=== PATIENT | female | born 1945 | race Caucasian/White ===

== ENCOUNTER 2016-05-10 16:05 | Inpatient (IN) | payer MEDICARE, MEDICAID ==
--- NOTE | 2016-05-10 16:26 | ED Physician Chart ---
Chief Complaint/HPI - Patient Information Date Seen:: 05/10/16 Time Seen:: 16:21 Chief Complaint:: depression History of Present Illness:: [place] is [place] for [place]. she admits she has been very depressed but no si and no hi. she comes from a [facility] and has reportedly been refusing all care there. pt denies any pains or recent illness. no fever. no gi upset. pt has chronic eye irritation "from the smog" and chronic sensative skin... Allergies:: Allergies Allergy/AdvReac Type Severity Reaction Status Date / Time erythromycin base Allergy Verified 05/10/16 16:19 ibuprofen Allergy Verified 05/10/16 16:19 NSAIDS (Non-Steroidal Allergy Verified 05/10/16 16:19 Anti-Inflamma Sulfa (Sulfonamide Allergy Verified 05/10/16 16:20 Antibiotics) Historian:: Patient Review of Systems - Review of Systems General/Constitutional: No fever, No chills, No weight loss, No weakness, No diaphoresis, No edema, No loss of appetite Skin: No skin lesions, Rash, No bruising Head: No headache, No light-headedness Eyes: No loss of vision, No pain, No diplopia ENT: No earache, No nasal drainage, No sore throat, No tinnitus Neck: No neck pain, No swelling, No thyromegaly, No stiffness, No mass noted Cardio Vascular: No chest pain, No palpitations, No PND, No orthopnea, No edema Pulmonary: No SOB, No cough, No sputum, No wheezing GI: No nausea, No vomiting, No diarrhea, No pain, No melena, No hematochezia, No constipation, No hematemesis G/U: No dysuria, No frequency, No hematuria Musculoskeletal: No bone or joint pain, No back pain, No muscle pain Endocrine: No polyuria, No polydipsia Psychiatric: No prior psych history, No depression, No anxiety, No suicidal ideation Hematopoietic: No bruising, No lymphadenopathy Allergic/Immuno: No urticaria, No angioedema Neurological: No syncope, No focal symptoms, No weakness, No paresthesia, No headache, No seizure, No dizziness, No confusion, No vertigo Past Medical History - Past Medical History Past Medical History: HTN, Other (diverticulitis, ambulatory difficulty) Social History: Care Facility Medication: Reviewed Family Medical History - Family Member Mother History Unknown: Yes Ethnicity: Non- Living Status: Unknown Hx Family Cancer: No Hx Family Coronary Artery Disease: Yes Hx Family Congestive Heart Failure: No Hx Family Hypertension: Yes Hx Family Stroke: Yes Hx Family Diabetes: Yes Hx Family Seizures: No Hx Family Dementia: Yes Hx Family AIDS: No Hx Family HIV: No Hx Family COPD: No Hx Family Hepatitis: No Hx Family Psychiatric Problems: No Hx Family Tuberculosis: No Physical Exam - Physical Examination General/Constitutional: Awake, Well-developed, well-nourished, Alert, No distress, GCS 15, Non-toxic appearing, Ambulatory Other Gen/Cons comments:: mod obese. alert and talking but oppositional and argumentative at times. Head: Atraumatic Eyes: Lids, conjuctiva normal, PERRL, EOMI Skin: Nl inspection, No skin lesions, No ecchymosis, Well hydrated, No lymphadenopathy Other Skin comments:: flaking skin noted on face. eyes mildly injected ...slt irritation noted. ENMT: External ears, nose nl, Nasal exam nl, Lips, teeth, gums nl Neck: Nontender, Full ROM w/o pain, No JVD, No nuchal rigidity, No bruit, No mass, No stridor Respiratory: Nl effort/Exclusion, Clear to Auscultation, No Wheeze/Rhonchi/Rales Cardio Vascular: RRR, No murmur, gallop, rubs, NL S1 S2 GI: No tenderness/rebounding/guarding, No organomegaly, No hernia, Normal BS's, Nondistended, No mass/bruits, No McBurney tenderness : No CVA tenderness Extremities: No tenderness or effusion, Full ROM, normal strength in all extremities, No edema, Normal digits & nails Neuro/Psych: Alert/oriented, DTR's symmetric, Normal sensory exam, Normal motor strength, Judgement/insight normal, Mood normal, Normal gait, No focal deficits Misc: normal gait, Normal back, No paraspinal tenderness Labs/Radiology/EKG Results - Lab Results Results: Laboratory Tests 05/10/16 05/10/16 16:35 16:35 WBC 6.6 RBC 5.73 H Hgb 15.3 D Hct 46.6 H D MCV 81.3 MCH 26.7 L MCHC Differential 32.9 RDW 14.3 Plt Count 285 D MPV 8.6 Neutrophils % 59.4 Lymphocytes % 30.5 Monocytes % 7.6 Eosinophils % 2.2 Basophils % 0.3 Sodium 139 Potassium 3.8 Chloride 108 H Carbon Dioxide 23.9 Anion Gap 10.9 BUN 21 Creatinine 0.7 Est GFR ( Amer) > 60.0 Est GFR (Non-Af Amer) > 60.0 BUN/Creatinine Ratio 30.0 Glucose 117 H Calcium 10.4 H Total Bilirubin 0.6 AST 13 ALT 5 L Alkaline Phosphatase 73 Total Protein 7.3 Albumin 4.1 Globulin 3.2 Albumin/Globulin Ratio 1.3 Triglycerides 71 Cholesterol 144 LDL Cholesterol Direct 80 HDL Cholesterol 52 - EKG Interpretations EKG Time:: 16:35 Rhythm: nsr [place]: 255 Rate: 105 Comments:: left ant fascicular block, otw stable. ok st/t waves. nad ED Septic Shock - . Is Septic Shock (SBP<90, OR Lactate>4 mmol\\L) present?: No Reassessment (Disposition) - Reassessment Reassessment Condition:: Unchanged - Diagnosis Diagnosis:: depression difficult behavior at [place] - Patient Disposition Admitted to:: [facility] Condition at Disposition:: Unchanged
[2016-05-10 16:48] LABS: % BASOPHILS 0.3 % (0.0-2.0); % EOSINOPHILS 2.2 % (0.0-5.0); % LYMPHOCYTES 30.5 % (20.0-50.0); % MONOCYTES 7.6 % (2.0-10.0); % NEUTROPHILS 59.4 % (40.0-80.0); MEAN CELL VOLUME 81.3 fl (81-100); MEAN CORPUSCULAR HEMOGLOBIN 26.7 pg (27.0-31.0); MEAN CORPUSCULAR HGB CONC 32.9 pg (28.0-36.0); MEAN PLATELET VOLUME 8.6 fl; RED BLOOD COUNT 5.73 Mil/cmm (3.80-5.20); RED CELL DISTRIBUTION WIDTH 14.3 % (11.5-20.0); WHITE BLOOD COUNT 6.6 Th/cmm (4.8-10.8)
[2016-05-10 16:50] LABS: HEMATOCRIT 46.6 % (35.0-45.0); HEMOGLOBIN 15.3 gm/dL (11.7-16.1); PLATELET COUNT 285 Th/cmm (150-400)
[2016-05-10 17:06] LABS: ALB/GLOB RATIO 1.3 (1.0-1.8); ALKALINE PHOSPHATASE 73 U/L (34-104); ANION GAP 10.9 (7.0-16.0); BILIRUBIN,TOTAL 0.6 mg/dL (0.3-1.0); BUN - UREA NITROGEN 21 mg/dL (7-25); CALCIUM SERUM 10.4 mg/dL (8.6-10.3); CARBON DIOXIDE 23.9 mEq/L (21.0-31.0); CHLORIDE 108 mEq/L (98-107); CHOLESTEROL 144 mg/dL (<200); CREATININE - SERUM 0.7 mg/dL (0.6-1.2); GLUCOSE 117 mg/dL (70-105); POTASSIUM SERUM 3.8 mEq/L (3.5-5.1); SGOT 13 U/L (13-39); SGPT/ALT 5 U/L (7-52); SODIUM SERUM 139 mEq/L (136-145); TRIGLYCERIDES 71 mg/dL (<150)
[2016-05-10 20:43] VITALS: BP 135/85
[2016-05-10] MEDS ORDERED: Magnesium Hydroxide (MOM) 30 mL UDC PO PRN (22:46)
[2016-05-11] MEDS ORDERED: Non-Formulary Item 1 EA (Cranberry Fruit Extract [Cranberry] 425 MG) PO SCH (09:00)
--- NOTE | 2016-05-11 19:38 | History & Physical ---
HISTORY OF PRESENT ILLNESS: The patient is a 70-year-old with long history of hypertension, hypothyroidism, degenerative joint disease, psychosis, admitted to Geropsych Department at [facility] for more advanced treatment. The patient has been very depressed, refusing medication and diet. She denies any chest pain, any shortness of breath, nausea, vomiting, fever, or chills. PAST MEDICAL HISTORY: Significant for hypertension, hypothyroidism, diverticulosis, degenerative joint disease, psychosis, and depression. PAST SURGICAL HISTORY: Perforated diverticulitis, status post exploratory laparotomy, and colostomy placement. ALLERGIES: None. MEDICATIONS: Follow admission reconciliation. SOCIAL HISTORY: No smoking, no alcohol, and no drugs. FAMILY HISTORY: Noncontributory. REVIEW OF SYSTEMS: RENAL SYSTEM: No history of chronic renal disorder. CARDIOVASCULAR SYSTEM: No coronary artery disease. ENDOCRINE SYSTEM: She has history of hypothyroidism. GASTROINTESTINAL SYSTEM: No upper or lower gastrointestinal bleed. NEUROLOGICAL: She has history of psychosis and depression. MUSCULOSKELETAL SYSTEM: She has degenerative joint disease. PHYSICAL EXAMINATION: GENERAL: She is awake, alert, and oriented. VITAL SIGNS: Temperature is 98, heart rate is 103, and blood pressure 136/84. HEENT: Normocephalic. Pupils are reacting to light and accommodation. Sclerae clear. NECK: Supple. Negative for lymphadenopathy, JVD, or bruit. CHEST: Bilaterally normal. No rhonchi or wheezing. HEART: S1, S2 normal. No murmur or gallop. ABDOMEN: Soft. Bowel sounds positive. EXTREMITIES: No edema. NEUROLOGIC: She is awake, alert, and oriented. No focal motor or sensory deficits. Cranial nerves 2-12 is intact. LABORATORY DATA: White blood 6.6, hemoglobin 15.3, hematocrit 46.6, and platelets 286,000. Sodium 139, potassium 3.8, BUN 21, and creatinine 0.7. TSH 7.4. ASSESSMENT: 1. Hypertension. 2. Hypothyroidism. 3. Degenerative joint disease. 4. Psychosis. 5. Depression. PLAN: The patient was admitted to the hospital under Dr. Robledo's service. MEDICAL PROBLEMS TO BE ADDRESSED DURING HOSPITALIZATION: Psychosis, depression, and hypothyroidism. The patient is cleared for treatment. We will resume her Synthroid 50 mcg a day. JOB# [id number]
[2016-05-12] MEDS: Levothyroxine 0.05 Mg Tab PO SCH (06:38)
[2016-05-12 11:12] LABS: HEP B CORE IGM Negative (Negative); HEP C ANTIBODY <0.1 s/co ratio (0.0-0.9)
--- NOTE | 2016-05-12 15:00 | Psychosocial Evaluation ---
AGE: 70. SEX: Female. PHYSICIAN: Dr. Robledo. CHIEF COMPLAINT: Agitation and paranoia. HISTORY OF PRESENT ILLNESS: The patient is a 70-year-old female with history of schizoaffective disorder. The patient has been retired and living in [facility]. Lately, the patient had been agitated and aggressive and had been in angry mood. The patient also has not been able to follow staff's directions and has been more agitated. The patient also has been having mood swings. Staff at the prison has not been able to monitor her and has not been able to control her poor impulse and was worried that the patient might hurt somebody or herself and the patient was transferred to the hospital. The patient is extremely angry and when I tried to talk to the patient, the patient responded by, "leave me alone." She refused to answer questions and she was getting agitated ____ answer questions. The patient also is disheveled and has poor hygiene. PAST PSYCHIATRIC HISTORY: The patient was in [facility] several months ago for treatment of schizoaffective disorder. PAST MEDICAL HISTORY: No acute. SOCIAL HISTORY: No known alcohol or street drug use. ALLERGIES: No known allergies. MENTAL STATUS EXAMINATION: The patient appears her stated age. Anxious. Irritable mood. Disheveled. Thought processes are ____ of speech. The patient did not answer question regarding hallucinations or delusions, but seems to be actively responding to stimuli. The patient is alert, but unable to assess her orientation or memory at this time because of her agitation and irritability. Poor insight. Poor judgment. ASSESSMENT: PRIMARY DIAGNOSIS: Schizoaffective disorder, bipolar type, with psychosis. TREATMENT PLAN: Continue to monitor the patient's behavior and condition closely. Also, we will start the patient on Seroquel. We will work on her poor impulse control. ESTIMATED LENGTH OF STAY: 7-10 days. PATIENT'S STRENGTHS AND WEAKNESSES: The patient's strength is not clear at this time. Weakness is ineffective coping. AFTER-DISCHARGE PLAN: Outpatient treatment and followup, will continue as an outpatient. CRITERIA FOR DISCHARGE: The patient will not be psychotic and stabilize with psychotropic medications and establish outpatient treatment plans. [facility]# [id number]
--- NOTE | 2016-05-12 22:04 | Psychosocial Evaluation ---
JUSTIFICATION FOR HOSPITALIZATION: The patient currently in the hospital, not eating, severely depressed, melancholic, refusing all care at a long term. CHIEF COMPLAINT: "I'm not feeling good." HISTORY OF PRESENT ILLNESS: This is a 70-year-old female, currently in the Geropsych Unit, severely depressed, melancholic, sullen, refusing interview, refusing medications, refusing care, refusing to eat at times. The patient is anhedonic, appearing hopeless and despairing. PAST PSYCHIATRIC HISTORY: Depression. SOCIAL HISTORY: Currently residing in a long term. There is a daughter __but seems to not be involved___. The patient is refusing to answer other questions. MEDICATIONS: Reviewed. MEDICAL HISTORY: Reviewed, please see full H and P. MENTAL STATUS EXAMINATION: Stated age. Little eye contact. Speech, not saying much, refusing interview, guarded. Mood "bad." Affect depressed. Thought processes were difficult to fully assess. Limited interview. Thought content, difficult to fully assess. Refusing to answer questions. No overt suicidal gestures. No overt psychotic symptoms. PROVISIONAL DIAGNOSES: Major depression, recurrent, severe. It is unclear if there is a psychotic component here. We will need to increase collateral and further assess. Under medical, please see full H and P. ESTIMATED LENGTH OF STAY: 5-10 days. ASSESSMENT: The patient is requiring inpatient hospitalization, severely depressed, refusing care, not eating much, refusing her medications, refusing interview. PLAN: We will continue to monitor. We will initiate low dose of an antidepressant. TREATMENT PLAN: Includes group as well as milieu therapy. CONDITIONS FOR DISCHARGE: Improved mood, improved affect, cessation of any SI or HI. Better p.o. intake. Better coping. JOB# [id number] TRACIE
[2016-05-13] MEDS: Levothyroxine 0.05 Mg Tab PO SCH (06:36)
[2016-05-14] MEDS: Levothyroxine 0.05 Mg Tab PO SCH (06:42)
--- NOTE | 2016-05-14 07:19 | Progress Notes ---
I am covering for Dr. Gamino. SUBJECTIVE: Overnight nursing staff reported that the patient has been very withdrawn, refusing care, at times paranoid. Today on [id number] evaluation, she is in her room, refusing to be interviewed easily, dismissive ____ medical doctor and the psychiatrist. MENTAL STATUS EXAMINATION: Withdrawn, irritable, refusing interview, poor insight, judgment and impulse control. ASSESSMENT AND PLAN: The patient is a 70-year-old female who continues to present very easily irritable and easily agitated, unable to engage in conversation. She presents very withdrawn and depressed. We will continue targeting her depression with the primary current psychiatric treatment plan and goals and current medications, which include Lexapro 5 mg and quetiapine 25 mg p.o. b.i.d. We will continue titrating as tolerated. [facility]# [id number]
[2016-05-14] MEDS: Escitalopram Oxalate 5 mg Tab PO SCH (09:55)
--- NOTE | 2016-05-14 22:43 | Progress Notes ---
SUBJECTIVE: The patient is seen, chart reviewed. Discussed with staff. The patient is currently in the hospital, irritable, refusing care. Concerns for weight loss, refusing medications, incontinent, telling staff to not bother her, although she remained unchanged at SNF and__ also developing rash there. The patient telling me to "go away, refusing interview, withdrawn." APathetic ASSESSMENT: The patient is _resistive___ towards medical care, withdrawn, irritable, refusing interview, concerns for safety. She has been intermittently medication compliant. PLAN: Continue to monitor. Continue to work on the patient's compliance issues. The patient continues to refuse care. I may need to follow a Ritk petition. JOB# [id number] TRACIE
[2016-05-15] MEDS: Levothyroxine 0.05 Mg Tab PO SCH (09:45)
[2016-05-15] MEDS: Escitalopram Oxalate 5 mg Tab PO SCH (09:45)
--- NOTE | 2016-05-16 02:58 | Progress Notes ---
SUBJECTIVE: The patient was seen, chart reviewed, and discussed with staff. The patient is more amenable to interview today. She is somewhat friendly here. She states that she is severely depressed and hopeless, very unhappy with her living environment. On a positive note, she is more honest with me. She tells me that she is not eating because she does not like the food here. She states she is not happy with the care over the other facility that is why she was refusing care. She wants to go to some alternative facility if possible. She knows she is eating a little bit better and will try to eat more. She does _attest to___ hopeless thoughts, despair, pessimistic thought, currently restraints from her daughter who we really have not been in touch with whatsoever. ASSESSMENT: The patient with poor p.o. intake. She is consistently and adamantly refusing medications, stating that she feels the medications do not help her. She also has very poor p.o. intake and is intermittently refusing meal, which is concerning, also irritable, verbally aggressive and abusive towards staff, although she is pretty friendly with me today. Surprisingly, given that she has essentially refused interview in the past ___today she does not tell me to___ "go away". We will continue to monitor. The patient is not safe for discharge, currently gravely disabled. She has nowhere to go, and we are trying to help her with placement, but in the meantime, we will stabilize her further and encourage med compliance and better p.o. intake. [facility]# [id number] TRACIE
[2016-05-16] MEDS: Levothyroxine 0.05 Mg Tab PO SCH (06:50)
[2016-05-16] MEDS: Escitalopram Oxalate 5 mg Tab PO SCH (08:54)
--- NOTE | 2016-05-17 02:42 | Progress Notes ---
SUBJECTIVE: The patient was seen, chart reviewed, and discussed with staff. The patient is still refusing food at times, angry, and unhappy with the food. She states she does not like the food. She is also refusing medications at times, verbally aggressive towards staff at times. She is fairly linear on exam, stating she is very depressed past of SI. But no active SI. "I don't know if I can do anything." The patient noted to be sleeping well, isolative, and withdrawn. She is amenable to placement. ASSESSMENT: The patient is hopeless, despairing, refusing treatment at times, and poor p.o. intake. PLAN: Encouraged better p.o. intake. Continue to work on the patient's placement, insight, and increase socialization. JOB# [id number] TRACIE
[2016-05-17] MEDS: Levothyroxine 0.05 Mg Tab PO SCH (06:32)
[2016-05-17] MEDS: Escitalopram Oxalate 5 mg Tab PO SCH ×2 (08:47→08:49)
--- NOTE | 2016-05-18 | Progress Notes ---
SUBJECTIVE: The patient is seen, chart is reviewed. Discussed with staff. The patient is not eating very well, refusing care. She get on a positive note____ taking medications today. The staff noting she remains verbally abusive, is afraid of staff essentially, denying that she feels the food is poisoned, but she is not eating very well, which is of concern, severely depressed, withdrawn, melancholic, passive SI. ASSESSMENT: The patient remains symptomatic, still thoughts of dying, thoughts of , passive suicidal thoughts, very withdrawn, poor p.o. intake, refusing care. PLAN: Continue to monitor. Continue to encourage p.o. intake and medication compliance. Given the severity of the patient's behavior, she is not safe for discharge. JOB# [id number] TRACIE
[2016-05-18] MEDS: Levothyroxine 0.05 Mg Tab PO SCH (06:34)
[2016-05-18] MEDS: Escitalopram Oxalate 5 mg Tab PO SCH ×2 (08:17→08:21)
[2016-05-19] MEDS: Levothyroxine 0.05 Mg Tab PO SCH (06:40)
--- NOTE | 2016-05-19 07:22 | Progress Notes ---
SUBJECTIVE: The patient was seen, chart reviewed, and discussed with staff. The patient remains depressed, still symptomatic, still refusing medications intermittently, not eating much today. Staff concerned. She is drinking the water, however. The patient is refusing to speak with me. She states she feels, "bad." She continues to have passive suicidal ideations, hopeless, despairing, withdrawn, isolative, . ASSESSMENT: The patient remains symptomatic, depressed, withdrawn, and poor p.o. intake. PLAN: We will continue to monitor, encourage better p.o. intake, and encourage med compliance. JOB# [id number] TRACIE
[2016-05-19] MEDS: Escitalopram Oxalate 5 mg Tab PO SCH (08:02)
--- NOTE | 2016-05-19 23:31 | Progress Notes ---
SUBJECTIVE: The patient is seen, chart reviewed, discussed with staff. The patient remains depressed, not talking to me, not eating, _and___staff concerned , isolative, withdrawn, staring blankly, continues to have passive suicidal ideations wishing she were , but no active plans. ASSESSMENT: The patient remains symptomatic, deeply depressed, withdrawn, isolative, poor p.o. intake. PLAN: Continue to monitor. We will continue to encourage better med compliance. The patient remains hopeless and despairing. JOB# [id number] TRACIE
[2016-05-20] MEDS: Levothyroxine 0.05 Mg Tab PO SCH (06:46)
[2016-05-20] MEDS: Escitalopram Oxalate 5 mg Tab PO SCH (08:31)
--- NOTE | 2016-05-21 02:18 | Progress Notes ---
SUBJECTIVE: The patient was seen, chart reviewed, and discussed with staff. The patient remains depressed, poor p.o. intake, agitated at times, yells at times, not eating much, very depressed, and withdrawn. The patient has been living in [place]. She had been poorly compliant, not following direction. Staff was concerned. The patient is not answering any questions this morning. She remains depressed, withdrawn, still no eating at times, refusing medications at times as well. ASSESSMENT: The patient remains depressed, withdrawn, symptomatic, poor p.o. intake, sullen on exam. PLAN: The patient may need a Riese petition. The patient does continue to refuse care and/or concerns about further decline. JOB# [id number]
[2016-05-21] MEDS: Levothyroxine 0.05 Mg Tab PO SCH (06:50)
[2016-05-21] MEDS: Escitalopram Oxalate 5 mg Tab PO SCH (16:17)
--- NOTE | 2016-05-21 23:44 | Progress Notes ---
SUBJECTIVE: The patient is seen, chart reviewed, discussed with staff. The patient remains depressed, withdrawn, not answering any questions this morning, just staring at me blankly. When I asked her why she is not talking to me, she states, "I do not want to say." Remains depressed, poor p.o. intake for medication compliance, not really responding to most staff members, resistive to ADLs. ASSESSMENT: The patient remains depressed, withdrawn, symptomatic, poor p.o. intake, , passive suicidal ideations. PLAN: Continued concerns for safety given that she is not eating much, not taking any medications, we will continue to monitor due to concerns about further decline. JOB# [id number] TRACIE
[2016-05-22] MEDS: Levothyroxine 0.05 Mg Tab PO SCH (06:35)
[2016-05-22] MEDS: Escitalopram Oxalate 5 mg Tab PO SCH (09:47)
--- NOTE | 2016-05-23 02:33 | Progress Notes ---
DATE: 05/22/2016 SUBJECTIVE: The patient seen, chart reviewed, and discussed with staff. The patient remains depressed, withdrawn, still refusing to eat, states that she does not like the food, that she finds the food tasteless, that the food makes her sick. Denies that she feels the food is poisoned. ___NO__ psychotic symptoms __noted but___ very sullen and withdrawn, continues to have passed with SI. Resistive to care. ASSESSMENT: The patient is depressed, withdrawn, poor p.o. intake, refusing medications, states that she has been on many other depressants as well as many medications for adjunctive and "none of them work." PLAN: Continue to monitor. I will be consulting with a colleague to get some redirection in regards to have the best care for this patient. JOB# [id number] MTDMorales
[2016-05-23] MEDS: Levothyroxine 0.05 Mg Tab PO SCH (06:42)
--- NOTE | 2016-05-24 04:03 | Progress Notes ---
DATE: 05/23/2016 SUBJECTIVE: The patient was seen, chart reviewed, discussed with staff. The patient is still symptomatic, depressed, withdrawn, refusing to eat, refusing to take medications, concerns for ability to process information, she verbalizes, she does not feel the medications work or have worked or will work, I do talk to her about ___ECT_ therapy and she refuses, I will continue to encourage med compliance. The patient denies that she feels the food is poison, but ____apparently discussed with staff that she has made these type of statements in the past. ASSESSMENT: The patient is depressed, withdrawn, refusing food, refusing medications, hopeless, despairing, concern for weight loss. PLAN: We will continue to monitor. We will follow Carin fortune today as well as a 72-hour hold and a 14-day hold. JOB# [id number] TRACIE
[2016-05-24] MEDS: Levothyroxine 0.05 Mg Tab PO SCH (06:55)
[2016-05-24] MEDS: Escitalopram Oxalate 5 mg Tab PO SCH (08:34)
--- NOTE | 2016-05-25 02:22 | Progress Notes ---
DATE: 05/24/2016 SUBJECTIVE: The patient was seen, chart reviewed, and discussed with staff. The patient remains withdrawn, depressed, overwhelmed, and still hopeless. She is eating a little bit better today, but refusing all medications. She believes, "They don't help me." I did test for dementia. There is no overt evidence of dementia. She is well oriented, answering most questions appropriately and correctly. Good abstraction. She did have some difficulty with concentration, but I think she is just apathetic and does not want to try. She also had some lapses in memory, but again, it seems that she has no interest in actually being participant in the exam, otherwise she is pretty linear and continues to appear quite depressed, hopeless, despairing, still passive SI, suspicious of staff at times. 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 PLAN: Continue to monitor, currently pending the court. JOB# [id number]
[2016-05-25] MEDS: Levothyroxine 0.05 Mg Tab PO SCH (07:53)
[2016-05-25] MEDS ORDERED: Haloperidol Lactate 5 mg/mL 1mL Vial IM PRN (10:21)
--- NOTE | 2016-05-26 00:47 | Progress Notes ---
DATE: 05/25/2016 SUBJECTIVE: The patient was seen, chart reviewed, and discussed with staff. The patient remains depressed, upset, and refusing medications. Riese hearing was today. It was upheld. We will begin backup medications if she refuses __PO__. The patient is still with vague SI, not eating well, stating she does not like the food, concerns for weight loss, decompensating. ASSESSMENT: Depressed, withdrawn, isolative, severely melancholic, refusing food. PLAN: We will continue to monitor, monitor closely for any undue side effects. We will start intramuscular backup if she refuses __PO___. JOB# [id number] TRACIE
[2016-05-26] MEDS: Levothyroxine 0.05 Mg Tab PO SCH (06:57)
[2016-05-27] MEDS: Levothyroxine 0.05 Mg Tab PO SCH (07:06)
--- NOTE | 2016-05-27 23:48 | Progress Notes ---
DATE: 05/26/2016 SUBJECTIVE: The patient was seen, chart reviewed, discussed with staff. The patient is still depressed, withdrawn, currently under Riese petition. The patient is upset, depressed, still with vague suicidal ideations. She is eating a little bit better, taking her medications, but isolative, poor motivation, ____still resistive to care. No medication side effects noted on exam. She is _a little more___ engaged. ASSESSMENT: The patient remains depressed, withdrawn, isolative, still does not want to take medications, but is taking it because she is under a Riese petition, still with vague suicidal ideation __present__. PLAN: Continue to monitor. The patient remains symptomatic, still resistive to care. Continue Remeron, titrate up over the next few days. JOB# [id number] MTDD
--- NOTE | 2016-05-28 02:54 | Progress Notes ---
DATE: 05/27/[address] Gamino. This is a 70-year-old female who was admitted on the 05/10/2016, because of not feeling well. She has not been eating, very depressed, melancholy and refusing care at the senior living. She has been very depressed and not participating in conversation. The patient's current medication includes Remeron 7.5 mg at bedtime. The patient continues to be depressed, refusing medication and Riese hearing, was scheduled for yesterday. It was upheld ____ and currently she will be getting IM medications versus p.o. She is still unpredictable and impulsive. She is on Haldol 1 mg, if she refused medication, we will continue outpatient group therapy, milieu therapy and adjust medication as needed. JOB# [id number]
[2016-05-28] MEDS: Levothyroxine 0.05 Mg Tab PO SCH (06:47)
--- NOTE | 2016-05-29 05:06 | Progress Notes ---
DATE: 05/28/2016 Case was discussed with staff of the patient, reviewed records. The patient continues to be depressed. Continues to be unpredictable, impulsive, resistant to self-care. Continues to be unpredictable, impulsive feeling depressed. She is compliant with the medication with no side effects, no sedation, no nausea, no extrapyramidal symptoms and she was ____ get medication intramuscularly if she refuses p.o. We will continue outpatient group therapy, milieu therapy and adjust medication as needed. JOB# [id number]
[2016-05-29] MEDS: Levothyroxine 0.05 Mg Tab PO SCH (06:35)
[2016-05-30] MEDS: Levothyroxine 0.05 Mg Tab PO SCH (06:45)
--- NOTE | 2016-05-30 07:59 | Progress Notes ---
DATE: 08/28/2016 SUBJECTIVE: The patient was seen, chart reviewed, and discussed with staff. The patient remains symptomatic, depressed, still hopeless, still noting passive SI. She is eating a little bit better. She is taking her medications, withdrawn, and melancholic, not interactive, staring blankly at times, nonspontaneous speech, not really engaged in interview, but linear. ASSESSMENT: The patient is symptomatic, depressed, hopeless, despairing, still with passive suicidal ideation, still concerns about her eating and p.o. intake. PLAN: Continue to monitor. We will increase her medications today. [facility]# [id number]
--- NOTE | 2016-05-31 05:46 | Progress Notes ---
DATE: 05/30/2016 SUBJECTIVE: The patient was seen, chart reviewed, and discussed with staff. The patient remains depressed, upset, withdrawn, melancholic, poor insight, not eating much, still with passive SI, wanting to , wanting to not wake up, staying in bed most of the times, staring out of the window, very apathetic, anhedonic, melancholic, withdrawn, not really interacting whatsoever. ASSESSMENT: The patient remains withdrawn, melancholic, severely depressed, and suicidal. PLAN: Continue to monitor. We will add low dose of Abilify on top of her regimen of mirtazapine to try to adjunct her depression medication, continue to titrate the mirtazapine to try to address her mood symptoms. The patient is still symptomatic, severely depressed, and still concerns for her safety. [facility]# [id number]
[2016-05-31] MEDS: Levothyroxine 0.05 Mg Tab PO SCH (06:43)
[2016-06-01] MEDS: Levothyroxine 0.05 Mg Tab PO SCH (06:38)
--- NOTE | 2016-06-02 06:09 | Progress Notes ---
DATE: 06/01/[address] Gamino. Case was discussed with staff of the patient, reviewed records. The patient continues to isolate herself, continues to be easily agitated, unpredictable, continues to be depressed, withdrawn with poor insight, not eating much, passive suicidal ideation, wanting to . I will be increasing her Abilify dose today as she is still not feeling well, depressed and so far, no side effects with the medication, no sedation, no nausea, no extrapyramidal symptoms and we will continue to work with the patient in group therapy, milieu therapy, adjust the medication as needed. JOB# [id number]
[2016-06-02] MEDS: Levothyroxine 0.05 Mg Tab PO SCH (06:41)
--- NOTE | 2016-06-03 01:02 | Progress Notes ---
DATE: 06/02/2016 Case was discussed with staff of the patient, reviewed records. The patient continues same ____. She continues to report feeling bad, I did increase Abilify dose yesterday. She is denying that she wants to harm herself, but she is feeling hopeless and helpless. She has been compliant with the medication with no side effects, no sedation, no nausea and no extrapyramidal symptoms and we will continue to work with the patient in group therapy, milieu therapy, adjust the medication as needed. JOB# [id number]
[2016-06-03] MEDS: Levothyroxine 0.05 Mg Tab PO SCH (06:42)
--- NOTE | 2016-06-04 01:34 | Progress Notes ---
DATE: 06/03/2016 Case was discussed with staff of the patient, reviewed records. The patient continues with complaining of feeling very bad, however, unable to explain. After a lot of prompting, she says she has headaches, says the staff to contact the medical doctor and also to give her something for headache. She continues to isolate herself, stays in her room. Continues to be unpredictable, impulsive, depressed, needing redirection, severely depressed, melancholic. She is on Remeron 50 mg at bedtime. I added aripiprazole. I increased the dose to 5 mg that was actually started by Dr. Gamino. I increased the dose, and she has been compliant with the medication with no side effects, no sedation, no nausea, and no extrapyramidal symptoms. We will continue to work with the patient in group therapy, milieu therapy, and adjust the medication as needed. JOB# [id number]
[2016-06-04] MEDS: Levothyroxine 0.05 Mg Tab PO SCH (06:42)
--- NOTE | 2016-06-05 05:48 | Progress Notes ---
DATE: 06/04/2016 Case was discussed with staff of the patient, reviewed records. The patient continues to stay in bed, isolate herself. Continues to have complaint of feeling bad, continues to have poor insight, unpredictable, impulsive. She continues to be very depressed and Abilify was added, I increased the dose, and she is already on Remeron 15 mg at bedtime with no side effects, no sedation, no nausea, no extrapyramidal symptoms. We will continue to work with the patient in group therapy, milieu therapy, and adjust the medication as needed. JOB# [id number]
[2016-06-05] MEDS: Levothyroxine 0.05 Mg Tab PO SCH (06:39)
--- NOTE | 2016-06-06 04:44 | Progress Notes ---
DATE: 06/05/2016 SUBJECTIVE: The patient seen, chart reviewed, discussed with staff. The patient is still depressed, withdrawn, melancholic, but on a positive note, she is eating well, at least 2 meals a day, taking her medications. Complaining of some stomach upset, could be from the Abilify, but otherwise sleeping well, eating well. She does remain pretty isolative, withdrawn. No overt SI at this time, but she is still having some hopeless thoughts. Placement has been confirmed. ASSESSMENT: Improvement noted. We will continue to monitor and follow up. The patient having some side effects, we will lower her Abilify today. We will coordinate care with social welfare administrator regarding safe discharge plan, good psychiatric followup. JOB# [id number]
[2016-06-06] MEDS: Levothyroxine 0.05 Mg Tab PO SCH (06:35)
--- NOTE | 2016-06-07 00:56 | Discharge Summary ---
DATE OF DISCHARGE: 06/06/2016 JUSTIFICATION FOR HOSPITALIZATION: Severely depressed, not eating, melancholic, suicidal. CHIEF COMPLAINT: "I'm not feeling good." HISTORY OF PRESENT ILLNESS: A 70-year-old female, hospitalized, severely depressed, melancholic, still refusing interview, refusing medications, refusing care, refusing to eat at times, anhedonic, hopeless, despairing, concerns for weight gain. PAST PSYCHIATRIC HISTORY: Depression. SOCIAL HISTORY: jail resident, daughter not involved. MEDICATIONS: Reviewed. MENTAL STATUS EXAMINATION: Please see full psych eval for details. PROVISIONAL DIAGNOSES: Major depression, recurrent, severe. No psychosis. MEDICAL: As noted. HOSPITAL COURSE: After initial assessment, the patient was initiated on medications to target her anxiety and depression; however, she was refusing. A Riese petition was filed and was upheld, the patient was placed on Remeron which she started to take as well as Abilify. Over the course of the hospitalization, she did improve. She remained depressed, however. She remained withdrawn, but she was eating about 65% of her meals previous 6 days before admission. She was no longer suicidal, denying any SI, no psychotic symptoms, and placement was confirmed, and she was discharged. CONDITION UPON DISCHARGE: Improved. Fair attention to ADLs, fair eye contact. Speech decreased content. Mood "not feeling too good." Affect, the patient is appearing depressed. Thought processes were linear. No SI, no intent, no plan. No HI, no intent, no plan. No auditory hallucinations, no visual hallucinations, no paranoia. Concentration was better sustained. Better insight, better judgment. The patient is eating better, taking her medications, wants to get better, attesting to some hope about things getting better. Suicidal risk assessment is low. DISCHARGE DIAGNOSES: Major depression, recurrent, severe. No psychosis. MEDICAL: As noted. Please note that I did offer the patient and talked to the patient and encouraged the patient to move forward with electroconvulsive therapy, but she did refuse. PROGNOSIS: If the patient follows up with Psychiatry in 7-10 days, takes her medications as directed and remains treatment compliant, prognosis will improve, otherwise guarded. [facility]# [id number]
[2016-06-07] MEDS: Levothyroxine 0.05 Mg Tab PO SCH (06:31)
--- NOTE | 2016-06-08 07:17 | Progress Notes ---
DATE: 06/07/2016 ADDENDUM The patient was to be discharged on 06/06/2016, but due to difficulties with placement, the discharge was delayed. We made efforts to try to get her into an alternative placement. She could be closer to her social support network, but unfortunately, we tried multiple facilities and had no luck. The patient does not meet any inpatient criteria at this time. For example, she is linear, no SI, no HI. No evidence of psychosis. She is eating 65% at least of her meals. Denying any suicidal fantasies, taking her medications, please refer to full discharge summary on 06/06/2016 for details. The patient will be discharged today. [facility]# [id number]
--- NOTE | 2016-06-19 13:37 | Progress Notes ---
DATE: 05/31/2016 Case was discussed with staff of the patient, reviewed records. This is a well known case, ____ over the weekend. Covering for Dr. Gamino. The patient continues to be withdrawn, continues to stay in her room, depressed, she continues to have ____ wanting to , but no plan. She does not want to wake up. She is staying in bed most of the time. The patient was ____ and she is on Remeron 15 mg at bedtime, Abilify 2 mg daily. It was started today and we will continue to work with the patient in group therapy, milieu therapy, adjust the medication as needed. JOB# [id number]
== END 2016-06-07 15:45 | DRG 885 ==
LOC: ER 16:05 → GERO 17:24
PROVIDERS: ADMIT Psychiatry & Neurology Psychiatry; ATTEND Psychiatry & Neurology Psychiatry
DX: F33.2 Major depressive disorder, recurrent severe without psychotic features (principal); F25.0 Schizoaffective disorder, bipolar type; I10 Essential (primary) hypertension; E03.9 Hypothyroidism, unspecified; M19.90 Unspecified osteoarthritis, unspecified site; F29 Unspecified psychosis not due to a substance or known physiological condition; Z93.3 Colostomy status; Z88.1 Allergy status to other antibiotic agents; Z88.2 Allergy status to sulfonamides; Z88.8 Allergy status to other drugs, medicaments and biological substances; Z90.49 Acquired absence of other specified parts of digestive tract; Z82.3 Family history of stroke
CPT/HCPCS: 36415-UA; 80053-TC; 80061-TC; 80074-90; 82948-90; 84443-TC; 85025-TC; 86592-TC; 93005; Z7610

== ENCOUNTER 2019-09-29 13:02 | Inpatient (IN) | payer MEDICARE, MEDICAID ==
[2019-09-29 17:32] VITALS: BP 93/65
[2019-09-29] MEDS ORDERED: Maalox 30 mL Cup PO PRN (19:42)
[2019-09-29] MEDS ORDERED: Acetaminophen 500 MG TAB PO PRN (19:42)
[2019-09-29] MEDS ORDERED: Magnesium Hydroxide (MOM) 30 mL UDC PO PRN (19:42)
[2019-09-30] MEDS: Levothyroxine 0.05 Mg Tab PO SCH (06:45)
[2019-09-30] MEDS: Multivitamin Tab PO SCH (09:05)
--- NOTE | 2019-09-30 14:51 | History & Physical ---
ADMIT DATE: 09/29/2019 CHIEF COMPLAINT: COVID pneumonia. HISTORY OF PRESENT ILLNESS: We have a 74-year-old female with recent COVID pneumonia, was transferred to [facility]. The patient was transferred back for psychiatric management. No nausea, vomiting, abdominal pain, diarrhea. PAST MEDICAL HISTORY: 1. AFib. 2. Asthma. 3. Hypertension. MEDICATIONS: List reviewed. ALLERGIES: None. PHYSICAL EXAMINATION: VITAL SIGNS: Temperature is 98.6, pulse 91, respirations 18, blood pressure is 100/60. HEENT: Normocephalic, atraumatic head exam. NECK: Supple. CARDIOVASCULAR: Regular rate and rhythm. LUNGS: Decreased breath sounds. ABDOMEN: Soft, nontender. EXTREMITIES: No edema, cyanosis or clubbing. CN exam is grossly intact ASSESSMENT AND PLAN: 1. COVID pneumonia. 2. Hypertension. 3. Asthma. The patient will be continued on antipsychotics. We will watch for symptoms of COVID pneumonia. JOB# [id number] [facility]
--- NOTE | 2019-09-30 19:38 | Psychiatric Evaluation ---
DATE OF SERVICE: 09/29/2019 PSYCHIATRIC INITIAL EVALUATION/MENTAL STATUS EXAM AGE: 74. SEX: Female. PHYSICIAN: Dr. Robledo. CHIEF COMPLAINT: "I don't feel well." HISTORY OF PRESENT ILLNESS: The patient is a 74-year-old female who was transferred to [facility] to [facility] because of positive COVID test. The patient after was medically cleared and had a negative test, transferred back to [facility]. The patient said that she is still depressed, but she denies any intention to harm herself or others. PAST PSYCHIATRIC HISTORY: The patient has multiple hospitalizations for treatment of depression. SOCIAL HISTORY: The patient lives in a intermediate center. No known alcohol or drug use. MENTAL STATUS EXAMINATION: Cooperative. Anxious. Depressed mood. Thought processes are mainly goal directed. The patient denies any hallucinations or delusions and denies any suicidal or homicidal ideations. The patient is alert and oriented to time, place, person, and situation. Intact immediate, recent and remote memories. Fair insight and judgment. ASSESSMENT: PRIMARY DIAGNOSIS: Depressive mood disorder, severe and recurrent. TREATMENT PLAN: Continue to monitor behavior and condition closely. Also, continue to work on ineffective coping and also discharge plans. ESTIMATED LENGTH OF STAY: 1-3 days. REASON TO CONTINUE HOSPITAL STAY: The patient still needs to work on her ineffective coping and on her depression. [facility]# [id number]
[2019-10-01] MEDS: Levothyroxine 0.05 Mg Tab PO SCH (06:30)
[2019-10-01] MEDS: Multivitamin Tab PO SCH (08:29)
--- NOTE | 2019-10-01 13:54 | Internal Medicine Prog Note ---
Internal Medicine Subjective - Subjective Service Date: 10/01/19 Patient seen and examined:: without staff Patient is:: awake Patient Complaints of:: congestion Per staff patient has:: no adverse event, no episodes of fall (no fevers, no cough, no sob) Internal Medicine Objective - Physical Exam Vitals and I&O: Vital Signs Temp 98.8 F 10/01/19 05:34 Pulse 84 10/01/19 08:04 Resp 20 10/01/19 07:36 BP 90/58 10/01/19 08:04 Pulse Ox 95 10/01/19 05:34 Intake & Output 09/30/19 10/01/19 10/01/19 18:59 06:59 18:59 Intake Total 1000 240 Balance 1000 240 Intake: Oral 1000 240 Other: # Voids 2 # Bowel Movements 0 Active Medications: Current Medications Acetaminophen (Tylenol) 650 mg PO Q4H PRN PRN Reason: Pain (Mild 1-3) Stop: 11/28/19 19:41 Acetaminophen (Tylenol Extra Strength) 1,000 mg PO Q6H PRN PRN Reason: Pain (Moderate 4-6) Stop: 11/28/19 19:41 Al Hydrox/Mg Hydrox/Simethicone (Maalox) 30 ml PO Q4HR PRN PRN Reason: GI DISTRESS Stop: 11/28/19 19:41 Aripiprazole (Abilify) 5 mg PO DAILY [facility]; Protocol Stop: 11/29/19 08:59 Last Admin: 10/01/19 08:29 Dose: 5 mg Docusate Sodium (Colace) 100 mg PO Q24HR PRN PRN Reason: Constipation Stop: 11/29/19 01:17 Famotidine (Pepcid) 20 mg PO BID [facility] Stop: 11/29/19 08:59 Last Admin: 10/01/19 08:29 Dose: 20 mg Levothyroxine Sodium (Synthroid) 0.075 mg PO QDAC [facility] Stop: 11/29/19 07:29 Last Admin: 10/01/19 06:30 Dose: 0.075 mg Lisinopril (Zestril) 20 mg PO DAILY [facility] Stop: 11/29/19 08:59 Last Admin: 10/01/19 08:04 Dose: Not Given Lorazepam (Ativan) 0.5 mg PO Q4HR PRN; Protocol PRN Reason: Anxiety Stop: 10/29/19 19:41 Losartan Potassium (Cozaar) 25 mg PO BID [facility] Stop: 11/29/19 08:59 Last Admin: 10/01/19 08:04 Dose: Not Given Magnesium Hydroxide (Milk Of Magnesia) 30 ml PO HS PRN PRN Reason: Constipation Montelukast Sodium (Singulair) 10 mg PO HS [facility] Stop: 11/29/19 20:59 Last Admin: 09/30/19 20:48 Dose: 10 mg Multivitamins/Vitamin C (Theragran) 1 tab PO DAILY [facility] Stop: 11/29/19 08:59 Last Admin: 10/01/19 08:29 Dose: 1 tab Sertraline HCl (Zoloft) 100 mg PO DAILY [facility]; Protocol Stop: 11/29/19 08:59 Last Admin: 10/01/19 08:29 Dose: 100 mg Zolpidem Tartrate (Ambien) 5 mg PO HS PRN PRN Reason: Insomnia Stop: 11/28/19 19:41 General: weak HEENT: NC/AT Neck: Supple Lungs: CTAB Cardiovascular: RRR, Normal S1, Normal S2 Abdomen: soft Extremities: clear - Procedures Procedures: Procedures Procedure Code Date GROUP PSYCHOTHERAPY 27837 01/10/02 OTHER GROUP THERAPY 94.44 09/15/14 Internal Medicine Assmt/Plan - Assessment Assessment: 1. S/P Covid pneumonia 2. Asthma 3. HTN - Plan Plan: continue supportive care d/w r.n. reviewed complete medical records check cbc, cmp
--- NOTE | 2019-10-01 14:04 | Progress Notes ---
DATE: 10/01/2019 Case was discussed with staff of the patient, reviewed records. This is a well-known case to me from previous admission. Covering for Dr. Robledo. The patient is a 74-year-old female who was readmitted on 09/29/2019 from [place] because she has positive COVID-19 test, after she was medically cleared then have a negative reports she was sent back. The patient with multiple hospitalizations and still in a residential facility. Continues to be anxious, depressed. She feels she is poor. She is not feeling well, but her blood pressure is good. I asked her to check her temperature, she is afebrile. She denies any current suicidal ideation, no homicidal ideation. Denies any other visual signs or paranoia. Diagnosed with depression. No side effects with the medication, no sedation, no nausea, no extrapyramidal symptoms. I asked the staff to check her vital signs more often today to make sure she is stable and reports her to Dr. Gupta. on Zoloft 100 mg a day and she is on Abilify 5 mg daily. We will continue outpatient group therapy, milieu therapy, adjust medication as needed. JOB# [id number] [facility]
[2019-10-02] MEDS: Levothyroxine 0.075 Mg Tab PO SCH (06:59)
[2019-10-02] MEDS: Multivitamin Tab PO SCH (08:30)
--- NOTE | 2019-10-02 15:47 | Internal Medicine Prog Note ---
Internal Medicine Subjective - Subjective Service Date: 10/02/19 Patient seen and examined:: without staff Patient is:: awake Patient Complaints of:: congestion Per staff patient has:: no adverse event, no episodes of fall (no fevers, no cough, no sob) Internal Medicine Objective - Physical Exam Vitals and I&O: Vital Signs Temp 99.5 F 10/02/19 14:00 Pulse 95 10/02/19 14:00 Resp 20 10/02/19 14:00 BP 102/61 10/02/19 14:00 Pulse Ox 97 10/02/19 14:00 Intake & Output 10/01/19 10/02/19 10/02/19 18:59 06:59 18:59 Intake Total 1100 240 Balance 1100 240 Intake: Oral 1100 240 Other: # Voids 2 # Bowel Movements 0 Active Medications: Current Medications Acetaminophen (Tylenol) 650 mg PO Q4H PRN PRN Reason: Pain (Mild 1-3) Stop: 11/28/19 19:41 Last Admin: 10/01/19 14:00 Dose: 650 mg Acetaminophen (Tylenol Extra Strength) 1,000 mg PO Q6H PRN PRN Reason: Pain (Moderate 4-6) Stop: 11/28/19 19:41 Al Hydrox/Mg Hydrox/Simethicone (Maalox) 30 ml PO Q4HR PRN PRN Reason: GI DISTRESS Stop: 11/28/19 19:41 Aripiprazole (Abilify) 5 mg PO DAILY [facility]; Protocol Stop: 11/29/19 08:59 Last Admin: 10/02/19 08:30 Dose: 5 mg Docusate Sodium (Colace) 100 mg PO Q24HR PRN PRN Reason: Constipation Stop: 11/29/19 01:17 Famotidine (Pepcid) 20 mg PO BID [facility] Stop: 11/29/19 08:59 Last Admin: 10/02/19 08:30 Dose: 20 mg Levothyroxine Sodium (Synthroid) 0.075 mg PO QDAC [facility] Stop: 12/01/19 07:29 Last Admin: 10/02/19 06:59 Dose: 0.075 mg Lisinopril (Zestril) 20 mg PO DAILY [facility] Stop: 11/29/19 08:59 Last Admin: 10/02/19 09:00 Dose: Not Given Lorazepam (Ativan) 0.5 mg PO Q4HR PRN; Protocol PRN Reason: Anxiety Stop: 10/29/19 19:41 Losartan Potassium (Cozaar) 25 mg PO BID [facility] Stop: 11/29/19 08:59 Last Admin: 10/02/19 09:00 Dose: Not Given Magnesium Hydroxide (Milk Of Magnesia) 30 ml PO HS PRN PRN Reason: Constipation Montelukast Sodium (Singulair) 10 mg PO HS [facility] Stop: 11/29/19 20:59 Last Admin: 10/01/19 21:45 Dose: 10 mg Multivitamins/Vitamin C (Theragran) 1 tab PO DAILY [facility] Stop: 11/29/19 08:59 Last Admin: 10/02/19 08:30 Dose: 1 tab Sertraline HCl (Zoloft) 100 mg PO DAILY [facility]; Protocol Stop: 11/29/19 08:59 Last Admin: 10/02/19 08:30 Dose: 100 mg Zolpidem Tartrate (Ambien) 5 mg PO HS PRN PRN Reason: Insomnia Stop: 11/28/19 19:41 General: weak HEENT: NC/AT Neck: Supple Lungs: CTAB Cardiovascular: RRR, Normal S1, Normal S2 Abdomen: soft Extremities: clear - Procedures Procedures: Procedures Procedure Code Date GROUP PSYCHOTHERAPY 28225 01/10/02 OTHER GROUP THERAPY 94.44 09/15/14 Internal Medicine Assmt/Plan - Assessment Assessment: 1. S/P Covid pneumonia 2. Asthma 3. HTN 4. hypothyroidism - Plan Plan: continue supportive care d/w r.n. reviewed complete medical records check cbc, cmp Nutritional Asmnt/Malnutr-PDOC - Dietary Evaluation Malnutrition Findings (Please click <Entered> for more info): Nutritional Asmnt/Malnutrition Start: 10/02/19 12: 27 Text: Status: Complete Freq: Protocol: Document 10/02/19 12:27 JAZZY (Rec: 10/02/19 12:31 JAZZY [id number]) Nutritional Asmnt/Malnutrition Patient General Information Nutritional Screening Moderate Risk Diagnosis Depression Pertinent Medical Hx/Surgical Hx AFib, HTN, COPD, Peptic Ulcer Disease, CVA with Lt hemiparesis, Depression, Hypothyroidism Subjective Information Pt is a 74-year-old female admitted on 09/28 d/t continued depression. Pt is eating an estimated 5-20% of meals since admittance Per Meal/Nutrition Activity Record. Dietary is currently providing an estimated 1850 kcals and 100 gm Pro, pt not adequately meeting estimated nutritional needs. Pt was discharged from our facility on 09/26 d/t positive COVID test. 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 Per wound care note (09/30), pt has blanchable light red and red areas on back, pelvic, and sacral/ buttocks areas. Adding Ensure Enlive BID until PO intake adequately meets estimated nutritional needs based on ABW . Visited pt in room today, pt stated she just does not have an appetite and is sometimes sad. Verbally educated her on meeting her nutrition and especially protein needs to aid in maintaining LBM and skin integrity. Anthropometrics HT: 54 WT: 253 LB (115 kg) ABW: 153 LB (69.66 kg) BMI: 43.43 (Obese, class III) GI/ Skin Integrity GI: WNL, Non-tender, Large, Round BM: Not Noted I/O: 1340/Not Noted Skin: WNL, Intact Roderick: 14 Current Diet Order/ Nutrition Support Cardiac, Chopped Patient / S.O Can Pertinent Medications Maalox (PRN), Colace (PRN), Pepcid, Synthroid, MOM (PRN), Theragran Pertinent Labs 09/28: CRP 0.7, Albumin 2.9 09/21: Hgb/Hct 10.9/35.0, TSH 5 .74 09/17: POC Glucose 68 8/3: HDL 29, A1c 5.4% 09/11: Hgb/Hct 10.9/35.1, BUN/ Cr 43/1.5, Glucose 94 (WNL), BNP 499, Mg 1.7, Lipase 673, HDL 35, TSH 8.24, Free T4 1.64 Nutritional Hx/Data Height 1.63 m Height (Calculated Centimeters) 162.6 Current Weight (lbs) 114.759 kg Weight (Calculated Kilograms) 114.8 Weight (Calculated Grams) 024673.9 [place] Body Weight 135 LB (61.36 kg) % [place] Body Weight 77 Body Mass Index (BMI) 43.4 Weight Status Obese GI Symptoms Last BM Not Noted Skin Integrity/Comment: Skin: WNL, Intact Roderick: 14 Per wound care note (09/30), pt has blanchable light red and red areas on back, pelvic, and sacral/buttocks areas. Adding Ensure Enlive BID until PO intake adequately meets estimated nutritional needs based on ABW. Estimated Nutritional Goals BEE in Kcals: Adj wt of IBW Calories/Kcals/Kg 20-25 Kcals Calculated 9964-4023 Protein: Adj wt of IBW Protein g/k.8-1.0 Protein Calculated 55-70 Fluid: ml 7003-5179 ml (20-25 ml/kg) Nutritional Problem 2. Problem Problem Inadequate oral intake Etiology r/t depression and poor appetite Signs/Symptoms: aeb pt intake 0-20% meals and pt self-report. 1. Problem Problem Obese, class III Etiology r/t chronic energy overconsumption Signs/Symptoms: aeb BMI >40 (43.43). Malnutrition Related to Morbid Obesity Malnutrition related to morbid obesity BMI> or equal to 40 Query Text:(Any 1 Criteria met) Malnutrition related to morbid obesity Yes Intervention/Recommendation Comments 1.Continue cardiac, chopped diet as tolerated. 2.Add Ensure Enlive BID ( completed). Expected Outcomes/Goals Expected Outcomes/Goals 1.PO intake to meet 75% of estimated nutritional needs. 2.Monitor PO intake, wt, nutrition related labs to trend WNL, and skin integrity to trend WNL. 3.F/U as moderate risk in 3-5 days, 10/04-10/06.
[2019-10-03] MEDS: Levothyroxine 0.075 Mg Tab PO SCH (07:03)
[2019-10-03] MEDS: Multivitamin Tab PO SCH (08:19)
--- NOTE | 2019-10-03 15:57 | Internal Medicine Prog Note ---
Internal Medicine Subjective - Subjective Service Date: 10/03/19 Patient seen and examined:: without staff Patient is:: awake Patient Complaints of:: congestion Per staff patient has:: no adverse event, no episodes of fall (no fevers, no cough, no sob) Internal Medicine Objective - Physical Exam Vitals and I&O: Vital Signs Temp 98.9 F 10/03/19 05:27 Pulse 99 10/03/19 05:27 Resp 19 10/03/19 07:32 BP 95/72 10/03/19 08:21 Pulse Ox 96 10/03/19 05:27 Intake & Output 10/02/19 10/03/19 10/03/19 18:59 06:59 18:59 Intake Total 1000 120 Balance 1000 120 Intake: Oral 1000 120 Other: # Voids 4 3 # Bowel Movements 1 Active Medications: Current Medications Acetaminophen (Tylenol) 650 mg PO Q4H PRN PRN Reason: Pain (Mild 1-3) Stop: 11/28/19 19:41 Last Admin: 10/01/19 14:00 Dose: 650 mg Acetaminophen (Tylenol Extra Strength) 1,000 mg PO Q6H PRN PRN Reason: Pain (Moderate 4-6) Stop: 11/28/19 19:41 Al Hydrox/Mg Hydrox/Simethicone (Maalox) 30 ml PO Q4HR PRN PRN Reason: GI DISTRESS Stop: 11/28/19 19:41 Aripiprazole (Abilify) 5 mg PO DAILY MONIE; Protocol Stop: 11/29/19 08:59 Last Admin: 10/03/19 08:19 Dose: 5 mg Docusate Sodium (Colace) 100 mg PO Q24HR PRN PRN Reason: Constipation Stop: 11/29/19 01:17 Famotidine (Pepcid) 20 mg PO BID MONIE Stop: 11/29/19 08:59 Last Admin: 10/03/19 08:19 Dose: 20 mg Levothyroxine Sodium (Synthroid) 0.075 mg PO QDAC MONIE Stop: 12/01/19 07:29 Last Admin: 10/03/19 07:03 Dose: 0.075 mg Lisinopril (Zestril) 20 mg PO DAILY [facility] Stop: 11/29/19 08:59 Last Admin: 10/03/19 08:20 Dose: Not Given Lorazepam (Ativan) 0.5 mg PO Q4HR PRN; Protocol PRN Reason: Anxiety Stop: 10/29/19 19:41 Losartan Potassium (Cozaar) 25 mg PO BID MONIE Stop: 11/29/19 08:59 Last Admin: 10/03/19 08:21 Dose: Not Given Magnesium Hydroxide (Milk Of Magnesia) 30 ml PO HS PRN PRN Reason: Constipation Montelukast Sodium (Singulair) 10 mg PO HS MONIE Stop: 11/29/19 20:59 Last Admin: 10/02/19 21:00 Dose: 10 mg Multivitamins/Vitamin C (Theragran) 1 tab PO DAILY MONIE Stop: 11/29/19 08:59 Last Admin: 10/03/19 08:19 Dose: 1 tab Sertraline HCl (Zoloft) 100 mg PO DAILY MONIE; Protocol Stop: 11/29/19 08:59 Last Admin: 10/03/19 08:19 Dose: 100 mg Zolpidem Tartrate (Ambien) 5 mg PO HS PRN PRN Reason: Insomnia Stop: 11/28/19 19:41 General: weak HEENT: NC/AT Neck: Supple Lungs: CTAB Cardiovascular: RRR, Normal S1, Normal S2 Abdomen: soft Extremities: clear - Procedures Procedures: Procedures Procedure Code Date GROUP PSYCHOTHERAPY 29569 01/10/02 OTHER GROUP THERAPY 94.44 09/15/14 Internal Medicine Assmt/Plan - Assessment Assessment: 1. S/P Covid pneumonia 2. Asthma 3. HTN 4. hypothyroidism - Plan Plan: discharge to snf continue supportive care d/w r.n. reviewed complete medical records Nutritional Asmnt/Malnutr-PDOC - Dietary Evaluation Malnutrition Findings (Please click <Entered> for more info): Nutritional Asmnt/Malnutrition Start: 10/02/19 12: 27 Text: Status: Complete Freq: Protocol: Document 10/02/19 12:27 JAZZY (Rec: 10/02/19 12:31 [id number] [id number]) Nutritional Asmnt/Malnutrition Patient General Information Nutritional Screening Moderate Risk Diagnosis Depression Pertinent Medical Hx/Surgical Hx AFib, HTN, COPD, Peptic Ulcer Disease, CVA with Lt hemiparesis, Depression, Hypothyroidism Subjective Information Pt is a 74-year-old female admitted on 09/28 d/t continued depression. Pt is eating an estimated 5-20% of meals since admittance Per Meal/Nutrition Activity Record. Dietary is currently providing an estimated 1850 kcals and 100 gm Pro, pt not adequately meeting estimated nutritional needs. Pt was discharged from our facility on 09/26 d/t positive COVID test. 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 Per wound care note (09/30), pt has blanchable light red and red areas on back, pelvic, and sacral/ buttocks areas. Adding Ensure Enlive BID until PO intake adequately meets estimated nutritional needs based on ABW . Visited pt in room today, pt stated she just does not have an appetite and is sometimes sad. Verbally educated her on meeting her nutrition and especially protein needs to aid in maintaining LBM and skin integrity. Anthropometrics HT: 54 WT: 253 LB (115 kg) ABW: 153 LB (69.66 kg) BMI: 43.43 (Obese, class III) GI/ Skin Integrity GI: WNL, Non-tender, Large, Round BM: Not Noted I/O: 1340/Not Noted Skin: WNL, Intact Roderick: 14 Current Diet Order/ Nutrition Support Cardiac, Chopped Patient / S.O Can Pertinent Medications Maalox (PRN), Colace (PRN), Pepcid, Synthroid, MOM (PRN), Theragran Pertinent Labs 09/28: CRP 0.7, Albumin 2.9 09/21: Hgb/Hct 10.9/35.0, TSH 5 .74 09/17: POC Glucose 68 8/3: HDL 29, A1c 5.4% 09/11: Hgb/Hct 10.9/35.1, BUN/ Cr 43/1.5, Glucose 94 (WNL), BNP 499, Mg 1.7, Lipase 673, HDL 35, TSH 8.24, Free T4 1.64 Nutritional Hx/Data Height 1.63 m Height (Calculated Centimeters) 162.6 Current Weight (lbs) 114.759 kg Weight (Calculated Kilograms) 114.8 Weight (Calculated Grams) 729158.9 [place] Body Weight 135 LB (61.36 kg) % [place] Body Weight 77 Body Mass Index (BMI) 43.4 Weight Status Obese GI Symptoms Last BM Not Noted Skin Integrity/Comment: Skin: WNL, Intact Roderick: 14 Per wound care note (09/30), pt has blanchable light red and red areas on back, pelvic, and sacral/buttocks areas. Adding Ensure Enlive BID until PO intake adequately meets estimated nutritional needs based on ABW. Estimated Nutritional Goals BEE in Kcals: Adj wt of IBW Calories/Kcals/Kg 20-25 Kcals Calculated 1119-4486 Protein: Adj wt of IBW Protein g/k.8-1.0 Protein Calculated 55-70 Fluid: ml 1369-0139 ml (20-25 ml/kg) Nutritional Problem 2. Problem Problem Inadequate oral intake Etiology r/t depression and poor appetite Signs/Symptoms: aeb pt intake 0-20% meals and pt self-report. 1. Problem Problem Obese, class III Etiology r/t chronic energy overconsumption Signs/Symptoms: aeb BMI >40 (43.43). Malnutrition Related to Morbid Obesity Malnutrition related to morbid obesity BMI> or equal to 40 Query Text:(Any 1 Criteria met) Malnutrition related to morbid obesity Yes Intervention/Recommendation Comments 1.Continue cardiac, chopped diet as tolerated. 2.Add Ensure Enlive BID ( completed). Expected Outcomes/Goals Expected Outcomes/Goals 1.PO intake to meet 75% of estimated nutritional needs. 2.Monitor PO intake, wt, nutrition related labs to trend WNL, and skin integrity to trend WNL. 3.F/U as moderate risk in 3-5 days, 10/04-10/06.
--- NOTE | 2019-10-04 00:09 | Progress Notes ---
DATE: 10/02/2019 SUBJECTIVE: Chart reviewed and the patient interviewed. Also discussed the patient's condition with the staff and reviewed records and labs. The patient's affect is brighter. The patient is less depressed. The patient also is interacting more with peers and with others. The patient denies any intention to harm herself or others. Also, she has been cooperative with the staff and denies any hallucinations or delusions and able to follow up staff instructions. ASSESSMENT: The patient is not suicidal or homicidal. TREATMENT PLAN: Planning to discharge the patient today. [facility]. JOB# [id number]
--- NOTE | 2019-10-05 20:41 | Discharge Summary ---
DATE OF DISCHARGE: 10/03/2019 PATIENT'S AGE: 74 SEX: Female. PHYSICIAN: Dr. Robledo. FINAL DIAGNOSIS: Depressive mood disorder, severe, recurrent. REASON FOR HOSPITALIZATION: The patient was readmitted to the general psych program from [facility] after the patient was tested COVID positive and went to the [facility] for medical treatment and clearance. After the patient was treated and became COVID negative, the patient returned to the hospital to continue her treatment. HOSPITAL COURSE: The patient continued to be anxious, but she was calm and cooperative. The patient also was interacting appropriately. She was still complaining of some pain, but the patient did not have any issues or problems with her mood. Physical exam of the patient basically showed no major medical issues and her COVID test came negative. AFTER DISCHARGE PLANS: The patient discharged from the hospital and went to [facility] with plans for follow her there. DISCHARGE ACTIVITY: No restrictions. DISCHARGE DIET: Regular. EXPECTED OUTCOME AFTER DISCHARGE: Fair if the patient continue to take her psychotropic medications and follow up with discharge plans. [facility]# [id number]
== END 2019-10-03 15:30 | DRG 885 ==
LOC: GERO 16:53
PROVIDERS: ADMIT Psychiatry & Neurology Psychiatry; ATTEND Psychiatry & Neurology Psychiatry
DX: F33.2 Major depressive disorder, recurrent severe without psychotic features (principal); U07.1 COVID-19; J12.89 Other viral pneumonia; I48.91 Unspecified atrial fibrillation; J45.909 Unspecified asthma, uncomplicated; I10 Essential (primary) hypertension; E03.9 Hypothyroidism, unspecified; Z88.6 Allergy status to analgesic agent; Z88.1 Allergy status to other antibiotic agents
CPT/HCPCS: 83036-90; U0003-CS; Z7610